=== PATIENT | male | born 1990 | race Caucasian/White ===

== ENCOUNTER 2018-11-15 10:09 | Observation (INO) | payer MEDICARE, MEDICAID ==
[~2018-11-15] VITALS: Ht 180.3 cm; Wt 80.0 kg
--- NOTE | 2018-11-15 10:29 | NUR ---
PT BIB [facility] AFTER PT BECAME DIZZY AND FELL MULTIPLE TIMES DURING BASKETBALL WARM-UP. PT DENIES LOC. PT ON MONITOR AND EKG DONE. ORTHOSTATICS DONE. LAB AT BEDSIDE FOR LAB DRAW.
[2018-11-15] MEDS ORDERED: CLON0.1T22 PO (10:31)
[2018-11-15] MEDS ORDERED: CLON0.5T11 PO (10:31)
[2018-11-15] MEDS ORDERED: CETI10CA PO (10:31)
[2018-11-15] MEDS ORDERED: CARB200T PO (10:31)
[2018-11-15 10:52] LABS: ALBUMIN 3.9 g/dL (3.4-5.0); ANION GAP 2 mmol/L (5-15); CHLORIDE 109 mmol/L (98-107)
[2018-11-15] MEDS ORDERED: ACETAMINOPHEN 500 MG TABLET PO ONE (11:00)
[2018-11-15 11:01] LABS: BASOPHILS # (AUTO) 0.02 x10^3/uL (0-0.1); BASOPHILS % (AUTO) 0 % (0-1); EOSINOPHILS # (AUTO) 0.08 x10^3/uL (0-0.4); EOSINOPHILS % (AUTO) 2 % (1-7); LYMPHOCYTES # (AUTO) 1.37 x10^3/uL (1-3.4); LYMPHOCYTES % (AUTO) 25 % (22-44); MD NO; MEAN CORPUSCULAR HEMOGLOBIN 32.3 pg (27.5-34.5); MEAN CORPUSCULAR HGB CONC 34.1 g/dL (33.2-36.2); MEAN CORPUSCULAR VOLUME 94.6 fL (81-97); MEAN PLATELET VOLUME 9.1 fL (7.4-10.4); MONOCYTES # (AUTO) 0.44 x10^3/uL (0.2-0.8); MONOCYTES % (AUTO) 8 % (2-9); NEUTROPHILS # (AUTO) 3.55 x10^3/uL (1.8-6.8); NEUTROPHILS % (AUTO) 65 % (42-75); PLATELET COUNT 180 x10^3/uL (130-400); RED BLOOD COUNT 4.84 x10^6/uL (4.38-5.82); RED CELL DISTRIBUTION WIDTH 13.4 % (9.4-14.8)
[2018-11-15] MEDS ORDERED: PLEASE ENTER ALLERGIES MC SCH (11:30)
--- NOTE | 2018-11-15 11:45 | NUR ---
PT VOMITED ALL OVER HIMSELF AFTER DR. SUBRAMANIAN OFFERED ZOFRAN FOR NAUSEA. PT CLEANED UP AND LINENS CHANGED. DR. SUBRAMANIAN AWARE AND PT TO GET IV MEDS AND FLUIDS.
[2018-11-15] MEDS ORDERED: ONDANSETRON ODT 4 MG PO ONE (12:00)
[2018-11-15] MEDS ORDERED: SODIUM CHLORIDE 0.9% 1,000ML IVBOLUS ONE (12:00)
[2018-11-15] MEDS ORDERED: ONDANSETRON 2MG/ML, 2ML ONE (12:00)
[2018-11-15] MEDS ORDERED: ONDANSETRON 2MG/ML, 2ML IVPush ONE (12:00)
--- NOTE | 2018-11-15 12:10 | NUR ---
CAREGIVER AT BEDSIDE REQUESTED CT SCAN. DR. MARILYNN MONSON.
--- NOTE | 2018-11-15 12:27 | NUR ---
DR. SUBRAMANIAN AT BEDSIDE FOR RECHECK.
[2018-11-15] MEDS ORDERED: MECLIZINE CHEWABLE 25 MG TAB ONE (13:47)
--- NOTE | 2018-11-15 13:52 | NUR ---
ATTEMPTED TO AMBULATE PT PER MD AND PT BEGAN VOMITING. PT DENIED FEELING DIZZY BUT EYES WERE CHECKED WITH NYSTAGMUS PRESENT. MECLIZINE TO BE GIVEN PER MD.
[2018-11-15] MEDS ORDERED: MECLIZINE CHEWABLE 25 MG TAB PO ONE (14:00)
--- NOTE | 2018-11-15 14:52 | NUR ---
HOSPITALIST AT BEDSIDE. PT FEELS BETTER AFTER MECLIZINE. VSS
--- NOTE | 2018-11-15 15:22 | NUR ---
CAREGIVER GAVE CONTACT NUMBERS FOR WHEN PT IS DISCHARGED IN THE FOLLOWING ORDER TO CALL: 1) RADHA BAIRD PLUMBING MANAGER AT 2) NELDA AT
[2018-11-15] MEDS ORDERED: BISACODYL 10 MG SUPP PR PRN (15:30)
[2018-11-15] MEDS ORDERED: MECLIZINE CHEWABLE 25 MG TAB PO PRN (15:30)
[2018-11-15] MEDS ORDERED: ENALAPRILAT 1.25 MG/ML, 2ML IVPush PRN (15:30)
[2018-11-15] MEDS ORDERED: IBUPROFEN 600 MG TABLET PO PRN (15:30)
[2018-11-15] MEDS ORDERED: PROMETHAZINE 25 MG/ML, 1ML IM PRN (15:30)
[2018-11-15] MEDS ORDERED: ONDANSETRON 2MG/ML, 2ML IVPush PRN (15:30)
[2018-11-15] MEDS ORDERED: POLYETHYLENE GLYCOL 17 GM PACKET PO PRN (15:30)
[2018-11-15] MEDS ORDERED: DOCUSATE 100 MG CAPSULE PO PRN (15:30)
[2018-11-15] MEDS ORDERED: ACETAMINOPHEN 325 MG TABLET PO PRN (15:30)
[2018-11-15] MEDS ORDERED: ONDANSETRON ODT 4 MG PO PRN (15:30)
[2018-11-15] MEDS ORDERED: METOCLOPRAMIDE 5 MG/ML, 2ML IVPush PRN (15:30)
[2018-11-15 15:42] VITALS: BP 122/72
[2018-11-15] MEDS: SODIUM CHLORIDE 0.9% 1,000 ML IV SCH (16:11)
[2018-11-15] MEDS ORDERED: GADOBUTROL 7.5 MMOL/7.5 ML PFS ONE (17:43)
[2018-11-15 19:33] VITALS: BP 115/56
[2018-11-15] MEDS: CARBAMAZEPINE 200 MG TABLET PO SCH (21:19)
[2018-11-16] MEDS: SODIUM CHLORIDE 0.9% 1,000 ML IV SCH (03:24)
[2018-11-16 03:28] VITALS: BP 103/53
[2018-11-16 05:11] LABS: BASOPHILS # (AUTO) 0.02 x10^3/uL (0-0.1); BASOPHILS % (AUTO) 0 % (0-1); EOSINOPHILS % (AUTO) 3 % (1-7); LYMPHOCYTES # (AUTO) 2.23 x10^3/uL (1-3.4); LYMPHOCYTES % (AUTO) 37 % (22-44); MD NO; MEAN CORPUSCULAR HEMOGLOBIN 32.4 pg (27.5-34.5); MEAN CORPUSCULAR HGB CONC 34.2 g/dL (33.2-36.2); MEAN CORPUSCULAR VOLUME 94.7 fL (81-97); MEAN PLATELET VOLUME 8.9 fL (7.4-10.4); MONOCYTES # (AUTO) 0.56 x10^3/uL (0.2-0.8); MONOCYTES % (AUTO) 9 % (2-9); NEUTROPHILS # (AUTO) 3.01 x10^3/uL (1.8-6.8); NEUTROPHILS % (AUTO) 50 % (42-75); PLATELET COUNT 147 x10^3/uL (130-400); RED BLOOD COUNT 4.27 x10^6/uL (4.38-5.82); RED CELL DISTRIBUTION WIDTH 13.6 % (9.4-14.8)
[2018-11-16 05:20] LABS: ANION GAP 5 mmol/L (5-15); CALCIUM 8.2 mg/dL (8.5-10.1); CHLORIDE 112 mmol/L (98-107)
[2018-11-16 05:22] LABS: CREATININE 0.91 mg/dL (0.7-1.3)
[2018-11-16 07:11] VITALS: BP 120/70
[2018-11-16] MEDS: CARBAMAZEPINE 200 MG TABLET PO SCH (08:05)
[2018-11-16] MEDS ORDERED: CETIRIZINE 10 MG TABLET PO SCH (09:00)
[2018-11-16] MEDS ORDERED: ONDA4TAB13 PO (09:36)
[2018-11-16] MEDS ORDERED: MECL-85 PO (09:36)
== END 2018-11-16 12:27 | disposition home or self-care (01) ==
LOC: ED 10:46 → EDIP 14:25 → INTOOBSV 14:25 → 5SO 15:37
PROVIDERS: ADMIT Hospitalist; ATTEND Hospitalist
DX: R42 Dizziness and giddiness (principal); R11.2 Nausea with vomiting, unspecified; F84.0 Autistic disorder; F95.2 Tourette's disorder; F43.10 Post-traumatic stress disorder, unspecified; W01.0XXA Fall on same level from slipping, tripping and stumbling without subsequent striking against object, initial encounter; Y93.67 Activity, basketball; Y92.39 Other specified sports and athletic area as the place of occurrence of the external cause; Y99.0 Civilian activity done for income or pay
CPT/HCPCS: 36415; 70450; 70553; 80048; 82040; 85025; 93005; 96361; 96374; 97161; 99285; A9585; G0378; J2405; J7030